=== PATIENT | female | born 1985 | race Caucasian/White ===

== ENCOUNTER → 2016-11-18 | Outpatient (CLI) | payer MEDICAID, OTHER ==
[2015-09-19 05:39] VITALS: BP 110/59
[~2016-11-18] MED LIST: IBUP200T58 PO; LEVO500T59 PO; OXYC-328 PO; OXYC10TA PO
--- NOTE | 2016-11-18 17:25 | RAD ---
Indication small for dates. Obstetrical ultrasound examination was performed. No prior obstetrical imaging is available. The maternal cervical length is unremarkable measuring approximately 6.4 cm. There is a single fetus in vertex presentation. A heart rate of 150 was documented. The amount of amniotic fluid appears normal. The placenta is predominantly anterior. The biparietal diameter of 3.8 cm, head circumference of 14.7 cm, abdominal circumference of 12.2 cm and femoral length of 2.6 cm are compatible with a gestational age of approximately 17 weeks 6 days. By sonographic analysis the expected date of confinement is 04/22/2017. Estimated weight is approximately 215 g. There was a three-vessel cord. The bladder, stomach, kidneys spine and visualized brain appeared unremarkable. IMPRESSION: Single viable intrauterine fetus of approximately 17 weeks 6 days gestation
== END | disposition home or self-care (01) ==
LOC: US 15:57
PROVIDERS: ATTEND Family Medicine
DX: O36.5920 Maternal care for other known or suspected poor fetal growth, second trimester, not applicable or unspecified (principal); Z3A.17 17 weeks gestation of pregnancy
CPT/HCPCS: 76805

== ENCOUNTER → 2017-02-18 | Outpatient (CLI) | payer OTHER ==
[2015-09-19 05:39] VITALS: BP 110/59
--- NOTE | 2017-02-19 08:13 | RAD ---
Clinical Indication: Small for dates. Technique: Study is dated February 19, 2017. Comparison is from November 18, 2016. Transabdominal imaging was performed. Findings: There is a single intrauterine gestation in cephalic presentation. The placenta is anterior in location without evidence of placental previa. Cervix is long and closed. DUANE measured 15.2 cm. This value is within normal limits. Biometrical data is as follows: BPD = 7.71 cm, with a corresponding gestational age of 31 weeks 0 days. HC = 28.95 cm, with a corresponding gestational age of 31 weeks 6 days. AC = 26.96 cm, with a corresponding gestational age of 31 weeks 0 days. FL = 5.91 cm, with a corresponding gestational age of 30 weeks 6 days. Ratio of head circumference to abdominal circumference is 1.07. Cephalic index is 79 %. Overall, the estimated sonographic gestational age is 31 weeks 1 day for an estimated date of delivery of April 21, 2017. Estimated weight is 1691 g, 46th percentile. A full survey was not performed. heart tones are 120 bpm. Impression: Single live intrauterine measures 31 weeks 1 day. There has been appropriate interval growth since prior study.
== END | disposition home or self-care (01) ==
LOC: US 15:43
PROVIDERS: ATTEND Family Medicine
DX: Z36.4 Encounter for antenatal screening for fetal growth retardation (principal); O36.5930 Maternal care for other known or suspected poor fetal growth, third trimester, not applicable or unspecified; Z3A.31 31 weeks gestation of pregnancy
CPT/HCPCS: 76805

== ENCOUNTER → 2019-06-28 | Outpatient (CLI) | payer BC ==
[2015-09-19 05:39] VITALS: BP 110/59
[~2019-06-28] MED LIST changes: -OXYC-328 PO; +OXYC1TAB22 PO
--- NOTE | 2019-06-28 12:26 | RAD ---
Examination: PREG 1ST TRIMESTER History: No heart tones at the outpatient office setting. Comparison/Correlation: None Findings: OB ultrasound exams performed. Uterus measures 4.2 cm x 4.1 cm x 7.6 cm. Intrauterine gestational sac is present. Yolk sac is identified. A pole is identified with a heart rate of 165 bpm. Snook-rump length of 1.51 cm corresponding to 7 weeks 6 days gestation. Incidental note is made of a small subchorionic hemorrhage measuring 1.5 cm x 0.4 cm x 0.6 cm at the superior fundal level. No free fluid in the cul-de-sac. Right ovary measures 3.5 cm x 2.7 cm x 2.9 cm the left ovary measures 2.4 cm x 2 cm x 2 cm. No suspicious adnexal mass lesion. Impression: Single living intrauterine gestation corresponding to 7 weeks 6 days by crown-rump length. Small superior subchorionic hemorrhage. Electronically signed by: Keo Burnett MD (06/28/2019 12:23 PM) [id number]
== END ==
LOC: US 11:22
PROVIDERS: ATTEND Family Medicine
DX: Z34.81 Encounter for supervision of other normal pregnancy, first trimester (principal); Z3A.01 Less than 8 weeks gestation of pregnancy
CPT/HCPCS: 76801

== ENCOUNTER → 2019-07-29 | Outpatient (CLI) | payer BC ==
[2015-09-19 05:39] VITALS: BP 110/59
--- NOTE | 2019-07-29 11:07 | RAD ---
EXAM: OB LIMITED 07/29/2019 10:15 AM CLINICAL INDICATION:Spotting during COMPARISON:OB ultrasound 06/28/2019 TECHNIQUE:Grayscale and color Doppler pelvic ultrasound per OB protocol FINDINGS:Uterus measures 15.2 x 5.9 x 7.5 cm. There is a gestational sac containing a fetus with crown-rump length of 6.38 cm, consistent with gestational age 12 weeks 5 days. No yolk sac visualized. heart rate is 162 bpm. The subchorionic hemorrhage seen on prior ultrasound is no longer visualized. No new abnormality. The right ovary measures 2.9 x 2.1 x 3.0 cm. The left ovary measures 2.4 x 1.7 x 3.4 cm. There is blood flow seen to both ovaries. No adnexal mass or free fluid. IMPRESSION:Single living intrauterine with gestational age 12 weeks 5 days by today's ultrasound, concordant with gestational age by LMP. heart rate is 162 bpm. Subchorionic hemorrhage on prior ultrasound has resolved. Electronically signed by: Alem Lester MD (07/29/2019 11:04 AM) [id number]
== END | disposition home or self-care (01) ==
LOC: US 09:40
PROVIDERS: ATTEND Family Medicine
DX: O26.851 Spotting complicating pregnancy, first trimester (principal); Z3A.12 12 weeks gestation of pregnancy
CPT/HCPCS: 76815

== ENCOUNTER 2019-08-04 19:20 | Emergency (ER) | payer BC ==
[~2019-08-04] VITALS: Ht 157.5 cm; Wt 61.3 kg
--- NOTE | 2019-08-04 20:48 | PHYS DOC ---
Past Medical History Past Medical History: Kidney Infection, UTI, Other Additional Past Medical Histor: SCOLIOSIS Past Surgical History: Cholecystectomy, Tonsillectomy, Other Additional Past Surgical Histo: Rt.knee scope Smoking Status: Never Smoker Alcohol Use: None Drug Use: Marijuana General Adult EDM: Chief Complaint: ABDOMINAL PAIN IN HPI: HPI: Patient is a 33-year-old female who presents with vaginal bleeding. Patient states she is 13 weeks and tonight after laughing on the couch she felt something warm running down her leg. She thought she had urinated on herself but when she inspected it was blood. She denies any pain. She is not had any fever chills or sweats. She said no dysuria or gross hematuria. She has not had a problem with this at all. [] Review of Systems: Review of Systems: Constitutional: Denies fever or chills. [] Eyes: Denies change in visual acuity. [] HENT: Denies nasal congestion or sore throat. [] Respiratory: Denies cough or shortness of breath. [] Cardiovascular: Denies chest pain or edema. [] GI: Denies abdominal pain, nausea, vomiting, bloody stools or diarrhea. [] : Per HPI Musculoskeletal: Denies back pain or joint pain. [] Integument: Denies rash. [] Neurologic: Denies headache, focal weakness or sensory changes. [] Endocrine: Denies polyuria or polydipsia. [] Lymphatic: Denies swollen glands. [] Psychiatric: Reports anxiety [] Heart Score: Risk Factors: Risk Factors: DM, Current or recent (<one month) smoker, HTN, HLP, family history of CAD, obesity. Risk Scores: Score 0 - 3: 2.5% MACE over next 6 weeks - Discharge Home Score 4 - 6: 20.3% MACE over next 6 weeks - Admit for Clinical Observation Score 7 - 10: 72.7% MACE over next 6 weeks - Early Invasive Strategies Allergies: Allergies: Allergies Coded Allergies Type Severity Reaction Last Updated Verified sulfamethoxazole Allergy Intermediate 02/14/14 No trimethoprim Allergy Intermediate 02/14/14 No Physical Exam: PE: Constitutional: Well developed, well nourished, no acute distress, non-toxic appearance. [] HENT: Normocephalic, atraumatic, bilateral external ears normal, oropharynx moist, no oral exudates, nose normal. [] Eyes: PERRLA, EOMI, conjunctiva normal, no discharge. [] Neck: Normal range of motion, no tenderness, supple, no stridor. [] Cardiovascular:Heart rate regular rhythm, no murmur [] Lungs & Thorax: Bilateral breath sounds clear to auscultation [] Abdomen: Gravid uterus otherwise benign s. [] Skin: Warm, dry, no erythema, no rash. [] Back: No tenderness, no CVA tenderness. [] Extremities: No tenderness, no cyanosis, no clubbing, ROM intact, no edema. [] Neurologic: Alert and oriented X 3, normal motor function, normal sensory function, no focal deficits noted. [] Psychologic: Affect normal, judgement normal, mood normal. [] Current Patient Data: Vital Signs: Vital Signs Date Time Temp Pulse Resp B/P (MAP) Pulse Ox O2 Delivery O2 Flow Rate FiO2 08/04/19 19:45 98.3 73 16 110/61 (77) 99 Room Air 98.3 EKG: EKG: [] Radiology/Procedures: Radiology/Procedures: []REASON: bleeding PROCEDURE: OB LIMITED OB ULTRASOUND, > 14 WEEKS Clinical Indication: Reason: bleeding / Comparison: Obstetric ultrasound, 07/29/2019. Technique: Multiple grayscale images, color Doppler, and M-mode images of the uterus are obtained. Findings: There is a single intrauterine gestation in transverse presentation. The placenta is posterior in location. The placenta is near the edge of the internal cervical os. Some of this appearance could be due to the maternal urinary bladder. The amount of amniotic fluid appears appropriate. Cervical length is 5.8 cm. Biometrical data: BPD = 7.2 cm for 13 weeks 2 days. HC = 2.4 cm for 14 weeks 0 days. AC = 8.7 cm for 13 weeks 6 days. FL = 1 cm for 12 weeks 3 days. HC/AC ratio = 1.24. Overall, the estimated sonographic gestational age is 13 weeks and 4 days for an estimated date of delivery of February 05, 2020. Estimated weight is without of range. The estimated heart rate is 149 beats per minute. A complete anatomic survey is not performed due to early gestational age. Cord insertion is seen. Urinary bladder and stomach are identified. The maternal ovaries are unremarkable. Impression: 1. Single live intrauterine gestation with estimated sonographic gestational age of 13 weeks and 4 days. 2. Low-lying placenta. Recommend attention on follow-up. Course & Med Decision Making: Course & Med Decision Making Pertinent Labs and Imaging studies reviewed. (See chart for details) [ED course: Evaluation reveals a 33-year-old that had some bleeding earlier tonight. Ultrasound showed a viable intrauterine . I did explain to the patient that just because the ultrasound looks okay now does not mean that she is not at risk for spontaneous . Patient understood patient states she will follow with her OB doctor either tomorrow or early next week. She also understands she will need to come to the emergency department should the bleeding intensified.] Dragon Disclaimer: Dragon Disclaimer: This electronic medical record was generated, in whole or in part, using a voice recognition dictation system. Departure Departure Impression: Primary Impression: Threatened Disposition: 01 HOME, SELF-CARE Condition: STABLE Referrals: PARUL LUONG MD (PCP) Patient Instructions: Threatened Miscarriage Additional Instructions: It is important that you follow-up with your OB doctor tomorrow or early next week for recheck. Please return to the emergency department immediately with any further symptoms. GLADIS PAIGE DO August 04, 2019 20:48
[2019-08-04 21:08] LABS: BASO % 1 % (0-3); EOS # 0.1 x10^3/uL (0.0-0.7); EOS % 2 % (0-3); HEMATOCRIT 30.4 % (36.0-47.0); HEMOGLOBIN 10.9 g/dL (12.0-15.5); LYMPH # 2.6 x10^3/uL (1.0-4.8); LYMPH % 33 % (24-48); MEAN CORPUSCULAR HEMOGLOBIN 31 pg (25-35); MEAN CORPUSCULAR HGB CONC 36 g/dL (31-37); MEAN CORPUSCULAR VOLUME 85 fL (79-100); MONO # 0.4 x10^3/uL (0.0-1.1); MONO % 5 % (0-9); NEUT # 4.7 x10^3/uL (1.8-7.7); NEUT % 60 % (31-73); PLATELET COUNT 225 x10^3/uL (140-400); RED BLOOD COUNT 3.57 x10^6/uL (3.50-5.40); RED CELL DISTRIBUTION WIDTH 13.3 % (11.5-14.5); WHITE BLOOD COUNT 7.9 x10^3/uL (4.0-11.0)
--- NOTE | 2019-08-04 21:12 | RAD ---
OB ULTRASOUND, > 14 WEEKS Clinical Indication: Reason: bleeding / Comparison: Obstetric ultrasound, 07/29/2019. Technique: Multiple grayscale images, color Doppler, and M-mode images of the uterus are obtained. Findings: There is a single intrauterine gestation in transverse presentation. The placenta is posterior in location. The placenta is near the edge of the internal cervical os. Some of this appearance could be due to the maternal urinary bladder. The amount of amniotic fluid appears appropriate. Cervical length is 5.8 cm. Biometrical data: BPD = 7.2 cm for 13 weeks 2 days. HC = 2.4 cm for 14 weeks 0 days. AC = 8.7 cm for 13 weeks 6 days. FL = 1 cm for 12 weeks 3 days. HC/AC ratio = 1.24. Overall, the estimated sonographic gestational age is 13 weeks and 4 days for an estimated date of delivery of February 05, 2020. Estimated weight is without of range. The estimated heart rate is 149 beats per minute. A complete anatomic survey is not performed due to early gestational age. Cord insertion is seen. Urinary bladder and stomach are identified. The maternal ovaries are unremarkable. Impression: 1. Single live intrauterine gestation with estimated sonographic gestational age of 13 weeks and 4 days. 2. Low-lying placenta. Recommend attention on follow-up. Electronically signed by: Joseph Sung MD (08/04/2019 9:09 PM) [facility] [place]
[2019-08-04 21:16] LABS: CALCIUM 8.5 mg/dL (8.5-10.1); CREATININE 0.7 mg/dL (0.6-1.0); POTASSIUM 3.4 mmol/L (3.5-5.1); PROTHROMBIN TIME PATIENT 12.7 SEC (11.7-14.0)
[2019-08-04 21:22] LABS: ALBUMIN 2.9 g/dL (3.4-5.0); ALBUMIN/GLOBULIN RATIO 0.9 (1.0-1.7); TOTAL BILIRUBIN 0.2 mg/dL (0.2-1.0); TOTAL PROTEIN 6.1 g/dL (6.4-8.2)
[2019-08-04 22:16] VITALS: BP 95/58
== END 2019-08-04 22:24 | disposition home or self-care (01) ==
LOC: ER 19:20
DX: O20.0 Threatened abortion (principal); N15.9 Renal tubulo-interstitial disease, unspecified; M41.9 Scoliosis, unspecified; F12.90 Cannabis use, unspecified, uncomplicated; Z90.89 Acquired absence of other organs; Z90.49 Acquired absence of other specified parts of digestive tract; Z98.890 Other specified postprocedural states; Z3A.13 13 weeks gestation of pregnancy
CPT/HCPCS: 36415; 76815; 80053; 84702; 85025; 85610; 86900; 86901; 99284

== ENCOUNTER → 2020-01-16 | Outpatient (CLI) | payer BC ==
--- NOTE | 2020-01-17 12:29 | RAD ---
Examination: OB LIMITED History: Reason: SMALL FOR DATES / Spl. Instructions: / History: Comparison/Correlation: 08/04/2019 ultrasound obstetric Findings: OB ultrasound exam was performed. Single living intrauterine gestation is present. movement including cardiac activity is present. heart rate is 137 bpm. breathing motion identified. 4 chamber heart noted. Three-vessel cord is evident. Cord insertion is visualized. Fluid in the urinary bladder is present. stomach, bilateral kidneys, spine, and brain visualized. Cephalic lie is noted. Amniotic fluid index is 9.2. Biparietal diameter is 8.9 corresponding to 36 weeks 0 days. Head circumference is 32.05 cm corresponding to 36 weeks 1 day. Abdominal circumference is 32.06 cm corresponding to 36 weeks 0 day. Femur length is 6.66 cm corresponding to 34 weeks 2 days. Head circumference to abdominal circumference ratio is 1.0. Estimated weight is 2709 g. Average ultrasound age 35 weeks 4 days with EDC of 02/16/2020. Maternal uterine cervix is not well visualized. Placenta is posterior and fundal in location. Impression: Average ultrasound age of 35 weeks 4 days is 1 week 1 day less than age by last menstrual period. Electronically signed by: Keo Burnett MD (01/17/2020 12:26 PM) [id number]
== END ==
LOC: US 15:46
PROVIDERS: ATTEND Family Medicine
DX: Z34.93 Encounter for supervision of normal pregnancy, unspecified, third trimester (principal); Z3A.35 35 weeks gestation of pregnancy
CPT/HCPCS: 76815

== ENCOUNTER → 2020-09-12 | Outpatient (CLI) | payer BC ==
--- NOTE | 2020-09-12 17:41 | KCIC ---
INDICATION: Reason: Chronic LBP. / Spl. Instructions: Hx. situs inversus. / History: COMPARISON: None. IMPRESSION: Lumbar spine: 3 views obtained. Large amount of stool within the colon which appears distended with s tool and air. Would correlate with symptoms since this can be seen with causes such as constipation o r ileus. Mild degenerative changes the lumbar spine with early facet hypertrophy and suspected early osteophyte formation at the vertebral body endplates. No definite acute fracture or dislocation. Pelvis: Single view obtained. Mild degenerative changes the bilateral hips which is more than typical ly seen for the patient's age. No evidence of malalignment. Calcifications within the pelvis could be secondary to phleboliths although would be difficult to exclude urinary tract stone given these calc ifications. Electronically signed by: Niall Mckenzie MD (09/12/2020 5:39 PM) [id number]
== END ==
LOC: KCIC 15:00
PROVIDERS: ATTEND Family Medicine
DX: M47.816 Spondylosis without myelopathy or radiculopathy, lumbar region (principal); M16.0 Bilateral primary osteoarthritis of hip; N94.89 Other specified conditions associated with female genital organs and menstrual cycle
CPT/HCPCS: 72100; 72170

== ENCOUNTER → 2020-12-18 | Outpatient (CLI) | payer BC ==
--- NOTE | 2020-12-18 17:02 | KCIC ---
EXAM: XR SACROILIAC JOINTS 3+ VIEWS. HISTORY: Low back pain. COMPARISON: None. FINDINGS: Sacroiliac joint spaces and alignment are maintained bilaterally. No fractures are identifi ed. IMPRESSION: 1. Unremarkable examination of the sacroiliac joints. MRI is more sensitive for subtle sacroiliitis i f there is persistent concern. Electronically signed by: Anderson Arvizu MD (12/18/2020 5:00 PM) [id number]
== END ==
LOC: KCIC 13:29
PROVIDERS: ATTEND Internal Medicine Rheumatology
DX: M46.1 Sacroiliitis, not elsewhere classified (principal); M16.0 Bilateral primary osteoarthritis of hip; M46.90 Unspecified inflammatory spondylopathy, site unspecified; Z79.899 Other long term (current) drug therapy
CPT/HCPCS: 72202

== ENCOUNTER → 2021-07-29 | Outpatient (CLI) | payer OTHER ==
--- NOTE | 2021-07-30 10:07 | KCIC ---
MR LUMBAR SPINE WO [id number] Date: 07/29/2021 3:24 PM Indication: Low back pain, multiple sites. Chronic LBP, pt. denies radiculopathy. Comparison: Lumbar spine radiographs 09/12/2020. Technique: Multi-planar multi-weighted magnetic resonance imaging of the lumbar spine was performed w ithout intravenous contrast using the standard lumbar spine protocol. FINDINGS: The lumbar spine is normally aligned. No acute fracture. The intervertebral discs are normal. Bone ma rrow signal intensity is normal. The conus terminates at a normal level. No abnormal signal is seen within the visualized distal spina l cord. No clumping of intrathecal nerve roots. No soft tissue abnormality in the visualized abdomen or pelvis. No significant spinal stenosis or neural foraminal narrowing. IMPRESSION: No significant spinal stenosis or neural foraminal narrowing. Electronically signed by: Daniel Rubi MD (07/30/2021 10:04 AM) [email or web address]
== END ==
LOC: KCIC MRI 14:52
PROVIDERS: ATTEND Family Medicine
DX: M54.50 Low back pain, unspecified (principal)
CPT/HCPCS: 72148